=== PATIENT | male | born 1990 | race Caucasian/White ===

== ENCOUNTER 2017-09-14 00:29 | Emergency (ER) | payer OTHER ==
[2017-09-14 01:46] LABS: BASOPHIL % 0.3 % (0-2); PLATELET COUNT 234 x10^3mcL (130-400); RED CELL DISTRIBUTION WIDTH 13.2 % (11.5-14.5)
[2017-09-14 01:57] LABS: CALCIUM 8.1 mg/dL (8.5-10.1); CARBON DIOXIDE 25.2 mmol/L (21-32); CHLORIDE SERUM 102 mmol/L (98-107); CREATININE SERUM 0.9 mg/dL (0.7-1.3); GFR1 > 60 mL/min; GLUCOSE SERUM 107 mg/dL (74-106); POTASSIUM SERUM 3.3 mmol/L (3.5-5.1); SODIUM SERUM 137 mmol/L (136-145)
[2017-09-14 01:59] LABS: ALBUMIN 3.7 g/dL (3.4-5.0); ALKALINE PHOSPHATASE 104 U/L (46-116); ALT/SGPT 53 U/L (16-63); AST/SGOT 35 U/L (15-37); BILIRUBIN TOTAL 0.41 mg/dL (0.20-1.00); TOTAL PROTEIN, SERUM 7.6 g/dL (6.4-8.2)
[2017-09-14 03:43] VITALS: BP 122/73
== END 2017-09-14 02:40 | disposition other institution (70) ==
LOC: ED 00:29
PROVIDERS: Emergency Medicine
DX: Z02.89 Encounter for other administrative examinations (principal); F10.129 Alcohol abuse with intoxication, unspecified; T51.0X1A Toxic effect of ethanol, accidental (unintentional), initial encounter; Y92.89 Other specified places as the place of occurrence of the external cause
CPT/HCPCS: 36415; G0480; J1200; J1630; J2405; Q0162

== ENCOUNTER 2017-09-14 00:29 | Emergency (ER) | payer OTHER | END 2017-09-14 02:40 | disposition other institution (70) | LOC: ED 00:29 | DX: Z02.89 Encounter for other administrative examinations (principal); F10.129 Alcohol abuse with intoxication, unspecified; T15.01XA Foreign body in cornea, right eye, initial encounter; Y92.89 Other specified places as the place of occurrence of the external cause ==

== ENCOUNTER 2020-07-24 00:51 | Emergency (ER) | payer BC ==
[~2020-07-24] VITALS: Ht 177.8 cm; Wt 92.1 kg
[2020-07-24 01:01] VITALS: BP 136/87; Ht 177.8 cm; Wt 92.1 kg
== END 2020-07-24 03:00 | disposition home or self-care (01) ==
LOC: ED 00:51
DX: S62.302A Unspecified fracture of third metacarpal bone, right hand, initial encounter for closed fracture (principal); W22.8XXA Striking against or struck by other objects, initial encounter; Y93.53 Activity, golf; Y92.39 Other specified sports and athletic area as the place of occurrence of the external cause; Y99.8 Other external cause status
CPT/HCPCS: Q0092